=== PATIENT | male | born 1930 | race Caucasian/White ===

== ENCOUNTER 2016-10-29 16:28 | Emergency (ER) | payer OTHER ==
[~2016-10-29] VITALS: Ht 172.7 cm; Wt 58.1 kg
[2016-10-29] MEDS ORDERED: ANIMAL CHEWS1 EACH PO (16:44)
[2016-10-29] MEDS ORDERED: DEPAKOTE ER250 MG PO (16:45)
[2016-10-29] MEDS ORDERED: NAMENDA XR14 MG PO (16:46)
[2016-10-29] MEDS ORDERED: PEPCID20 MG PO (16:46)
[2016-10-29] MEDS ORDERED: TRAZODONE HCL150 MG PO (16:47)
[2016-10-29] MEDS ORDERED: REMERON15 M2 PO (16:47)
[2016-10-29] MEDS ORDERED: VITAMIN D31000 UNIT PO (16:48)
[2016-10-29] MEDS ORDERED: ZOLOFT50 MG PO (16:49)
[2016-10-29] MEDS ORDERED: DEPAKOTE SPRIN125 MG PO (16:49)
[2016-10-29 18:12] VITALS: BP 141/77
== END 2016-10-29 18:29 ==
LOC: EME 16:28
DX: F41.9 Anxiety disorder, unspecified (principal); F03.91 Unspecified dementia, unspecified severity, with behavioral disturbance; G30.9 Alzheimer's disease, unspecified
CPT/HCPCS: 99281; 99283